=== PATIENT | female | born 1980 | race Caucasian/White ===

== ENCOUNTER 2023-05-02 03:54 | Day surgery (SDC) | payer OTHER ==
[2023-04-25 13:57] VITALS: BMI 21.1
[2023-05-02] MEDS ORDERED: TRIAMCINOLONE ACET 40MG/1ML VIAL ONE (07:39)
[2023-05-02] MEDS ORDERED: BUPIVACAINE HCL/PF 0.5% (5MG/ML) 10 ML VIAL ONE (07:40)
[2023-05-02] MEDS ORDERED: LIDOCAINE HCL/PF 1% SDV 5ML VIAL ONE (07:40)
[2023-05-02 12:39] VITALS: TEMP 97.5
[2023-05-02] MEDS: BUPIVACAINE HCL/PF 0.5% (5MG/ML) 10 ML VIAL IJ ONE ×2 (13:16)
[2023-05-02] MEDS: LIDOCAINE 1% P/F 10 MG/ML VIAL INF ONE ×2 (13:16)
[2023-05-02] MEDS: TRIAMCINOLONE ACET 40MG/1ML VIAL IM ONE ×2 (13:16)
[2023-05-02] MEDS: IOHEXOL 180 MG/1 ML ML IJ ONE ×3 (13:16)
[2023-05-02 13:29] VITALS: BP 105/65; PULSE 55; RESP 17
[2023-05-02] MEDS ORDERED: ACETAMINOPHEN 500 MG TABLET (FP) PO PRN (14:06)
== END 2023-05-02 13:41 | disposition home or self-care (01) ==
LOC: JASU-SURG 03:54
PROVIDERS: ATTEND Pain Medicine Pain Medicine
PROC: 3E0U33Z Introduction of Anti-inflammatory into Joints, Percutaneous Approach (ICD-10-PCS; 2023-05-02)
PROC: 3E0U3BZ Introduction of Anesthetic Agent into Joints, Percutaneous Approach (ICD-10-PCS; principal; 2023-05-02 14:15)
DX: M53.3 Sacrococcygeal disorders, not elsewhere classified (principal)
CPT/HCPCS: 76000-TC-FY; 81025

== ENCOUNTER 2023-06-17 05:14 | Day surgery (SDC) | payer OTHER ==
[2023-06-12 09:59] VITALS: BMI 20.7
[2023-06-17] MEDS ORDERED: LIDOCAINE HCL/PF 1% SDV 5ML VIAL ONE (07:18)
[2023-06-17] MEDS ORDERED: BUPIVACAINE HCL/PF 0.5% (5MG/ML) 10 ML VIAL ONE (07:18)
[2023-06-17] MEDS ORDERED: TRIAMCINOLONE ACET 40MG/1ML VIAL ONE (07:18)
[2023-06-17] MEDS: LIDOCAINE 1% P/F 10 MG/ML VIAL INF ONE ×2 (10:26→10:34)
[2023-06-17] MEDS: TRIAMCINOLONE ACETONIDE 40 MG/ML 10 ML VIAL IJ ONE (10:26)
[2023-06-17] MEDS: IOHEXOL 180 MG/1 ML ML IJ ONE ×2 (10:28)
[2023-06-17] MEDS: BUPIVACAINE HCL/PF 0.5% (5 MG/ML) 30 ML VIAL IJ ONE (10:35)
[2023-06-17 10:57] VITALS: RESP 18
[2023-06-17 11:49] VITALS: BP 108/71; PULSE 63; TEMP 97.9
[2023-06-17] MEDS ORDERED: ACETAMINOPHEN 500 MG TABLET (FP) PO PRN (13:23)
== END 2023-06-17 11:05 | disposition home or self-care (01) ==
LOC: JASU-SURG 05:14
PROVIDERS: ATTEND Pain Medicine Pain Medicine
PROC: 3E0U3GC Introduction of Other Therapeutic Substance into Joints, Percutaneous Approach (ICD-10-PCS; principal; 2023-06-17 09:45)
DX: M53.3 Sacrococcygeal disorders, not elsewhere classified (principal)
CPT/HCPCS: 76000-TC-FY; 81025

== ENCOUNTER 2023-11-06 04:25 | Day surgery (SDC) | payer OTHER ==
[2023-11-05 17:14] VITALS: BMI 21.4
[2023-11-06] MEDS ORDERED: BUPIVACAINE HCL/PF 0.5% (5MG/ML) 10 ML VIAL ONE (07:24)
[2023-11-06] MEDS ORDERED: LIDOCAINE HCL/PF 1% SDV 5ML VIAL ONE (07:25)
[2023-11-06 08:41] VITALS: RESP 18
[2023-11-06] MEDS: LIDOCAINE 1% P/F 10 MG/ML VIAL PNB ONE (10:31)
[2023-11-06] MEDS: BUPIVACAINE HCL/PF 0.75% 10 ML VIAL PNB ONE (10:31)
[2023-11-06 10:52] VITALS: BP 106/66
[2023-11-06 11:08] VITALS: PULSE 56; TEMP 97
== END 2023-11-06 11:18 | disposition home or self-care (01) ==
LOC: JASU-SURG 04:25
PROVIDERS: ATTEND Pain Medicine Pain Medicine
PROC: 3E0T33Z Introduction of Anti-inflammatory into Peripheral Nerves and Plexi, Percutaneous Approach (ICD-10-PCS; 2023-11-06)
PROC: 3E0T3BZ Introduction of Anesthetic Agent into Peripheral Nerves and Plexi, Percutaneous Approach (ICD-10-PCS; principal; 2023-11-06 09:45)
DX: M47.816 Spondylosis without myelopathy or radiculopathy, lumbar region (principal)
CPT/HCPCS: 76000-TC-FY; 81025

== ENCOUNTER 2024-08-12 07:11 | Day surgery (SDC) | payer OTHER ==
[2024-08-10 14:54] VITALS: BMI 23.6
[2024-08-12 12:15] VITALS: RESP 18; TEMP 97.1
[2024-08-12] MEDS: LIDOCAINE HCL 1% PRESERVATIVE FREE - 30ML VIAL IJ ONE ×2 (13:41)
[2024-08-12] MEDS: TRIAMCINOLONE ACETONIDE 40 MG/ML 10 ML VIAL IJ ONE ×2 (13:41)
[2024-08-12] MEDS: BUPIVACAINE HCL/PF 0.25% (2.5MG/ML) 10 ML VIAL IJ ONE ×2 (13:42)
[2024-08-12 13:59] VITALS: BP 108/70; PULSE 60
== END 2024-08-12 14:25 | disposition home or self-care (01) ==
LOC: JASU-SURG 07:11
PROVIDERS: ATTEND Pain Medicine Pain Medicine
PROC: 3E0U3BZ Introduction of Anesthetic Agent into Joints, Percutaneous Approach (ICD-10-PCS; 2024-08-12)
PROC: 3E0U33Z Introduction of Anti-inflammatory into Joints, Percutaneous Approach (ICD-10-PCS; principal; 2024-08-12 13:15)
DX: M16.11 Unilateral primary osteoarthritis, right hip (principal)
CPT/HCPCS: 76000-TC-FY; 81025